=== PATIENT | male | born 1945 | race Caucasian/White ===

== ENCOUNTER → 2019-06-21 | Outpatient (CLI) | payer MEDICARE, OTHER ==
--- NOTE | 2019-06-22 16:43 | RADIOLOGY REPORT (SQ) ---
EXAM DESCRIPTION: MRI RT UPPER JOINT WITHOUT COMPLETED DATE/TIME: 06/21/2019 7:19 pm REASON FOR STUDY: M25.511 PAIN IN RIGHT SHOULDER M25.511 PAIN IN RIGHT SHOULDER COMPARISON: None. TECHNIQUE: NON ARTHROGRAM MRI OF THE RIGHT shoulder images acquired and stored on PACS. Multiplanar imaging to include fat sensitive sequences such as T1, water sensitive sequences such as FST2/STIR, c artilage sensitive sequences such as FSPD/gradient-echo sequences. LIMITATIONS: There is metallic artifact along the AC joint and bicipital groove from prior surgery. FINDINGS: BONE MARROW AND CORTEX: Small subcortical cysts are present in the anterior right humeral head greater tuberosity adjacent to the anterior attachment, supraspinatus tendon JOINT OR BURSAL EFFUSION: No significant joint or bursal fluid. No suggestion of loose bodies. GLENO-HUMERAL ARTICULATION: Normal alignment. Mild chondromalacia without bulky bony spurring ACROMION AND AC JOINT: Type 1 acromion with mild acromioclavicular joint hypertrophy on coronal imag e 13. Minimal narrowing of the subacromial space. ROTATOR CUFF AND INTERVAL: There is a focal high-grade partial thickness undersurface tear of the dis andrez supraspinatus tendon, best shown on coronal images 13 and 14, and sagittal image 5. Adjacent sub cortical cysts are present in the right humeral head greater tuberosity. A small partial thickness undersurface tear of the distal infraspinatus tendon is present posteriorly , best shown on sagittal images 4 and 5, and coronal image 8. Remainder of the supraspinatus and infraspinatus tendons demonstrate mild undersurface tendinopathy. subscapularis intact. No rotator interval tear. No rotator interval thickening to suggest adhesive capsulitis. LABRUM AND BICEPS LABRAL COMPLEX: There is thickening of the long head biceps tendon as it passes fr om the bicipital groove into the joint space. No gross labral tear or paralabral cyst. REMAINDER OF LABRUM AND IGHL : No gross tear or paralabral cyst formation. Labral evaluation is less than optimal without joint distention. No thickening of IGHL to suggest adhesive capsulitis. PERIARTICULAR AND ADJACENT SOFT TISSUES: No masses or abnormal nodes. OTHER: No other significant finding. IMPRESSION: High-grade partial thickness undersurface tear distal supraspinatus tendon along its ant erior edge. Tiny partial-thickness undersurface tear distal posterior infraspinatus tendon Intra-articular long head biceps tendinopathy Old postsurgical changes along the rotator interval/ AC joint TECHNICAL DOCUMENTATION: JOB ID: [id number] [employer]- All Rights Reserved Reading location - IP/workstation name: [email or web address]
== END ==
LOC: RAD 17:10
PROVIDERS: ATTEND Orthopaedic Surgery Sports Medicine
DX: M25.511 Pain in right shoulder (principal)